=== PATIENT | male | born 1965 | race Caucasian/White ===

== ENCOUNTER 2020-02-20 14:46 | Day surgery (SDC) | payer OTHER ==
[2020-02-17 15:59] VITALS: BMI 29.8
[2020-02-20] MEDS ORDERED: MIDAZOLAM HCL 2 MG/2 ML SINGLE DOSE VIAL ONE (16:45)
--- NOTE | 2020-02-20 17:09 | OP ---
Operative Note - Note: Operative Date: 02/20/20 Pre-Operative Diagnosis: Left renal stone Operation: Left ESWL Findings: 6 mm mid pole Left renal stone Post-Operative Diagnosis: Same as Pre-op Surgeon: Ricky Thacker Anesthesia: Regional Estimated Blood Loss (mls): 0 Operative Report Dictated: Yes
[2020-02-20] MEDS ORDERED: oxyCODONE HCL 5 MG TABLET PO PRN (17:19)
[2020-02-20] MEDS ORDERED: PROMETHAZINE HCL 25 MG/1 ML VIAL IVPUSH PRN (17:19)
[2020-02-20] MEDS ORDERED: LACTATED RINGERS SOLUTION 1,000 ML IV SCH (17:30)
[2020-02-20 20:15] VITALS: BP 131/76; PULSE 53; TEMP 97
--- NOTE | 2020-02-21 15:33 | OP ---
DATE OF OPERATION: 02/20/2020 PREOPERATIVE DIAGNOSIS: Left renal stone. POSTOPERATIVE DIAGNOSIS: Left renal stone. PROCEDURE: Left extracorporeal shock wave lithotripsy. ATTENDING: Ricky Vann MD ANESTHESIA: Fractional. OPERATION WAS FOLLOWS: The patient was brought to the operating room and placed in the supine position on the operating room table. Ultrasonography and fluoroscopy were performed. A 6-mm left midpole stone was identified and 2500 impulses at 17 joules of power were administered to the stone. Excellent fragmentation of the stone was noted under real-time ultrasonography and fluoroscopy. No complications were noted. The patient tolerated the procedure very well. DISPOSITION: The patient was sent to the recovery room. Avelina [id number]
== END 2020-02-20 18:40 | disposition home or self-care (01) ==
LOC: JASU-SURG 14:46
PROVIDERS: ATTEND Urology
PROC: 0TF4XZZ Fragmentation in Left Kidney Pelvis, External Approach (ICD-10-PCS; principal; 2020-02-20 16:45)
DX: N20.0 Calculus of kidney (principal)

== ENCOUNTER 2020-04-30 04:26 | Day surgery (SDC) | payer OTHER ==
[2020-04-27 11:26] VITALS: BMI 30.7
[2020-04-30] MEDS ORDERED: KETOROLAC TROMETHAMINE 30 MG/1 ML VIAL ONE (16:28)
[2020-04-30] MEDS ORDERED: MIDAZOLAM HCL 2 MG/2 ML SINGLE DOSE VIAL ONE (16:29)
--- NOTE | 2020-04-30 16:39 | OP ---
Operative Note - Note: Operative Date: 04/30/20 Pre-Operative Diagnosis: Right renal stone Operation: Right ESWL Findings: 6 mm mid pole Right renal stone Post-Operative Diagnosis: Same as Pre-op Surgeon: Ricky Thacker Anesthesia: Regional Estimated Blood Loss (mls): 0 Operative Report Dictated: Yes
--- NOTE | 2020-04-30 17:31 | OP ---
DATE OF OPERATION: 04/30/2020 PREOPERATIVE DIAGNOSIS: Right renal stone. POSTOPERATIVE DIAGNOSIS: Right renal stone. PROCEDURE: Right extracorporeal shockwave lithotripsy. ATTENDING: Gina Thacker M.D. ANESTHESIA: Fractional. DESCRIPTION OF PROCEDURE: Patient was brought in the operating room, placed in a supine position on the operating room table. Ultrasonography and fluoroscopy were performed. A 6-mm right mid pole stone was identified. Anesthesia and preoperative antibiotics were then administered. Shockwave lithotripsy was then started. 2500 impulses at 17 joules of power were administered to the stone with excellent fragmentation noted under realtime ultrasonography and fluoroscopy. No complications were noted. The patient tolerated the procedure very well. DISPOSITION: To recovery room. GINA DE LA ROSA M.D. [id number]
[2020-04-30 18:20] VITALS: BP 132/78; PULSE 60; TEMP 97.8
== END 2020-04-30 18:15 | disposition home or self-care (01) ==
LOC: JASU-SURG 04:26
PROVIDERS: ATTEND Urology
PROC: 0TF3XZZ Fragmentation in Right Kidney Pelvis, External Approach (ICD-10-PCS; principal; 2020-04-30 16:31)
DX: N20.0 Calculus of kidney (principal)